=== PATIENT | male | born 1940 | race Caucasian/White ===

== ENCOUNTER 2017-05-01 07:48 | Emergency (ER) | payer OTHER, BC ==
[~2017-05-01] VITALS: Ht 182.9 cm; Wt 111.6 kg
[~2017-05-01 07:48] MED LIST: APAP/HYDROCODON1 T13 PO; ASPIR 8181 MG PO; ATENOLOL25 MG PO; AVODART0.5 M1 PO; CLARINEX5 MG PO; COL100 PO; DIOVAN160 MG PO; DIOVAN320 MG PO; DOXAZOSIN MESYLA8 MG PO; FINASTERIDE5 M1 PO; FUROSEMIDE40 MG PO; GLIPIZIDE2.5 M1 PO; GLIPIZIDE5 MG PO; GOOD SENSE ASPI81 M3 PO; JANUVIA100 M1 PO; LASIX20 MG PO; LASIX40 MG PO; LIPITOR40 MG PO; LIPITOR80 MG PO; METOPROLOL TART25 M1 PO; NABUMETONE500 MG PO; NEXIUM40 MG PO; PLA75 PO; PROPECIA1 MG PO; SYN25 PO; TEG100 PO; TEGRETOL200 MG; THERAGRAN-M1 TA4 PO; VITAMIN C100 M1; [UNRECOGNIZED DRUG - OTHER]
[2017-05-01 08:40] LABS: BASOPHIL % 0.8 % (0-2); RED CELL DISTRIBUTION WIDTH 14.1 % (11.5-14.5)
[2017-05-01 08:44] LABS: PLATELET COUNT 127 x10^3mcL (130-400)
[2017-05-01 08:52] LABS: CALCIUM 8.6 mg/dL (8.5-10.1); CARBON DIOXIDE 28.7 mmol/L (21-32); CHLORIDE SERUM 105 mmol/L (98-107); CREATININE SERUM 1.5 mg/dL (0.7-1.3); GLUCOSE SERUM 126 mg/dL (74-106); POTASSIUM SERUM 4.9 mmol/L (3.5-5.1); SODIUM SERUM 139 mmol/L (136-145)
[2017-05-01 09:04] LABS: ALKALINE PHOSPHATASE 83 U/L (46-116); ALT/SGPT 27 U/L (16-63); AMYLASE 77 U/L (25-115); AST/SGOT 20 U/L (15-37); BILIRUBIN TOTAL 0.58 mg/dL (0.20-1.00); HDL CHOLESTEROL 37 mg/dL (40-60); LIPASE 231 IU/L (73-393); T4(THYROXINE) 7.4 ug/dL (4.7-13.3); TOTAL PROTEIN, SERUM 6.9 g/dL (6.4-8.2)
[2017-05-01 09:05] LABS: ALBUMIN 3.1 g/dL (3.4-5.0); CHOLESTEROL 105 mg/dL (<200)
[2017-05-01 10:59] VITALS: BP 101/58
== END 2017-05-01 10:59 | disposition home or self-care (01) ==
LOC: ED 07:48
PROVIDERS: Emergency Medicine
DX: S50.02XA Contusion of left elbow, initial encounter (principal); S09.90XA Unspecified injury of head, initial encounter; M25.552 Pain in left hip; I10 Essential (primary) hypertension; E03.9 Hypothyroidism, unspecified; E11.40 Type 2 diabetes mellitus with diabetic neuropathy, unspecified; R20.0 Anesthesia of skin; E78.00 Pure hypercholesterolemia, unspecified; I25.10 Atherosclerotic heart disease of native coronary artery without angina pectoris; Z88.8 Allergy status to other drugs, medicaments and biological substances; Z79.891 Long term (current) use of opiate analgesic; Z79.899 Other long term (current) drug therapy; Z90.89 Acquired absence of other organs; W01.0XXA Fall on same level from slipping, tripping and stumbling without subsequent striking against object, initial encounter; Y93.01 Activity, walking, marching and hiking; Y92.89 Other specified places as the place of occurrence of the external cause; Y99.8 Other external cause status
CPT/HCPCS: 36415; 83880; Q0092

== ENCOUNTER 2018-09-25 14:53 | Emergency (ER) | payer OTHER, BC ==
[~2018-09-25] VITALS: Ht 182.9 cm; Wt 99.8 kg
[2018-09-25 15:10] VITALS: Ht 182.9 cm; Wt 99.8 kg
[2018-09-25 20:40] VITALS: BP 155/70
== END 2018-09-25 20:40 | disposition home or self-care (01) ==
LOC: ED 14:53
DX: S92.512A Displaced fracture of proximal phalanx of left lesser toe(s), initial encounter for closed fracture (principal); S91.115A Laceration without foreign body of left lesser toe(s) without damage to nail, initial encounter; I50.9 Heart failure, unspecified; I11.9 Hypertensive heart disease without heart failure; E11.40 Type 2 diabetes mellitus with diabetic neuropathy, unspecified; E78.00 Pure hypercholesterolemia, unspecified; Z98.890 Other specified postprocedural states; W22.01XA Walked into wall, initial encounter; Y93.89 Activity, other specified; Y92.89 Other specified places as the place of occurrence of the external cause; Y99.8 Other external cause status
CPT/HCPCS: J2001; Q0092